=== PATIENT | male | born 1970 | race Caucasian/White ===

== ENCOUNTER 2016-09-26 18:00 | Observation (INO) | payer OTHER ==
[~2016-09-26] VITALS: Ht 177.8 cm; Wt 86.1 kg
--- NOTE | 2016-09-26 19:20 | ED ORDER SUMMARY ---
..... Patient: KERRY MANCUSO OrderSheet [facility] VisitID: [id number] [address] [place] [address] 46y, M Registration Date/Time: 09/26/2016 ORDER SHEET Weight: 86.1 kg (stated) Allergies: Remicade GENERAL ORDERS: UA-Culture if indicated Urgent (18:16 09/26/2016 [facility]) (Ack 18:19 TBergley) (18:33 LWhalen R.N.) Amylase Urgent (18:16 09/26/2016 [facility]) (Ack 18:19 TBergley) (18:33 LWhalen R.N.) Lipase Urgent (18:16 09/26/2016 [facility]) (Ack 18:19 TBergley) (18:33 LWhalen R.N.) PT with INR Urgent (18:16 09/26/2016 [facility]) (Ack 18:19 TBergley) (18:33 LWhalen R.N.) Cardiac Panel Stat (18:16 09/26/2016 [facility]) (Ack 18:19 TBergley) (18:33 LWhalen R.N.) Urine Drug Screen Urgent (18:16 09/26/2016 [facility]) (Ack 18:19 TBergley) (18:33 LWhalen R.N.) NPO (18:16 09/26/2016 [facility] ) (Ack 18:19 TBergley) (18:33 LWhalen R.N.) Abd Series 2V Abd/1V Chest (history of Crohn's ds) Urgent (18:22 09/26/2016 [facility] ) (Ack 18:23 TBergley) (18:33 LWhalen R.N.) Call (Place call to): (Dr Ghotra) (19:22 09/26/2016 [facility] DO) (Ack 19:22 [facility]) (19:24 [facility] We[facility]) Call (Place call to): (Dr Blanco) (19:25 09/26/2016 [facility]) (19:31 [facility] Weighmaster) MEDICATION ORDERS: IV FLUIDS: IV NS : initial bolus 1000 mL (1000 mL/hr), then 500 mL/hr for X2 (NOW) (18:16 09/26/2016 [facility]) (18:43 LWhalen R.N.) Zofran IV 4 mg (NOW) (18:16 09/26/2016 [facility]) (18:43 LWhalen R.N.) Dilaudid IV 0.5 mg (may repeat x 1 prn pain) (19:01 09/26/2016 [facility]) (19:21 DDavis R.N.) Solu-MEDROL IV 125 mg (NOW) (19:21 09/26/2016 [facility]) (Ack 19:22 DDavis R.N.) (19:29 DDavis R.N.) ORDER SHEET NOTES: [Electronically signed by Todd Anne R.N. (20:27 09/26/2016)] [Electronically signed by Duncan Cruz DO (21:39 09/26/2016)] [Electronically locked/signed by Todd Anne R.N. (20:27 09/26/2016)]
--- NOTE | 2016-09-26 19:20 | ED CLINICAL REPORT ---
Clinical Report - Physicians/Mid Levels [facility] [address] [place] [address] 09/26/2016 18:06 Patient: KERRY MANCUSO Time Seen: 18:16. Arrived- By private vehicle. Historian- patient. HISTORY OF PRESENT ILLNESS Chief Complaint: ABDOMINAL PAIN. At its maximum, severity described as severe. When seen in the E.D., severity described as moderate. Modifying factors- worsened by movement and food. Relieved by rest. This started today and is still present. It was gradual in onset and has been waxing/waning. It is described as "pain". No radiation. It is described as located in the right abdomen and right lower quadrant. The patient has had nausea. He has had moderate vomiting. The vomiting has occurred several times. No bilious emesis, blood-tinged emesis or frankly bloody emesis. No diarrhea. Similar symptoms previously: Occasionally. Recent medical care: Not recently seen/assessed. REVIEW OF SYSTEMS The patient has had constipation and back pain. No black stools, hematemesis, difficulty with urination, pain with urination or urinary frequency. No bloody stools, fever, headache, sore throat or chest pain. No difficulty breathing or cough. Last bowel movement: yesterday. All systems otherwise negative, except as recorded above. PAST HISTORY See nurses notes. Bowel obstruction secondary to Crohn's disease. Crohn's disease. Insomnia. Surgeries: Bowel surgery. Medications: Ambien Oral. OxyCODONE HCl Oral. Emtacorte. AzaTHIOprine Oral. Stelara Subcutaneous. Allergies: Remicade. SOCIAL HISTORY Never smoker. No alcohol use or drug use. ADDITIONAL NOTES The nursing notes have been reviewed. PHYSICAL EXAM Vital Signs: 09/26/2016 18:13 BP: 155/97. HR: 83. RR: 18. O2 saturation: 99%. Temp: 98.4 F. Appearance: Alert. Oriented X3. Patient in moderate distress. Eyes: Pupils equal, round and reactive to light. Eyes normal inspection. No scleral icterus or pale conjunctivae. ENT: Pharynx normal. No pharyngeal erythema or tonsillar exudate. The mucous membranes are not dry. Neck: Normal inspection. Neck supple. CVS: Normal heart rate and rhythm. Heart sounds normal. Pulses normal. Respiratory: No respiratory distress. Breath sounds normal. Abdomen: Tenderness in the right side of the abdomen, right lower quadrant and lower abdomen. No mass. No rebound tenderness or guarding. Back: Normal inspection. Skin: Skin warm and dry. Normal skin color. Normal skin turgor. Extremities: Extremities exhibit normal ROM. No calf tenderness. No lower extremity edema. Neuro: Oriented X 3. No motor deficit. LABS, X-RAYS, AND EKG Chest X-ray: No acute disease. Normal lung markings present. Normal heart size. Mediastinum normal. Great vessels normal. No infiltrate. Views: PA. Technique: good. The X-rays were interpreted contemporaneously by me. KUB: (dilated small bowel loops with AFL's c/w SBO). Views: two-view AP. Technique: good. The X-rays were interpreted contemporaneously by me. Laboratory Tests: UA-Culture if indicated: (SHANNON: 09/26/2016 18:17) ( [facility] Final results Test Result Flag Units (Reference) URINE COLOR YELLOW URINE APPEARANCE HAZY URINE GLUCOSE NEGATIVE (NEGATIVE) URINE BILIRUBIN NEGATIVE (NEGATIVE) URINE KETONE NEGATIVE (NEGATIVE) URINE SPECIFIC GRAVITY 1.015 (1.010-1.030) URINE PH 8.0 (5.0-8.0) URINE PROTEIN NEGATIVE (NEGATIVE) URINE UROBILINOGEN 0.2 EU/dL (0.2-1.0) URINE NITRITE NEGATIVE (NEGATIVE) URINE BLOOD NEGATIVE (NEGATIVE) URINE LEUK ESTERASE NEGATIVE (NEGATIVE) URINE RBC RARE rbc/hpf (0-1) URINE WBC NONE SEEN wbc/hpf (0-1) URINE EPITHELIAL CELLS NONE SEEN EPI/hpf (0-5) URINE BACTERIA NONE SEEN (NONE SEEN) URINE COMMENT CULT NOT INDICATED 1+ AMORPHOUS URATESURINE CULTURES ARE SET-UP BASED ON THE FOLLOWING CRITERIA:POSITIVE NITRITEPOSITIVE LEUKOCYTE ESTERASEGREATER THAN 10 WHITE BLOOD CELLSMODERATE (2+) OR GREATER BACTERIA CBC w Diff: (SHANNON: 09/26/2016 18:17) ( [facility] 09/26/2016 18:51) Final results Test Result Flag Units (Reference) WHITE BLOOD COUNT 10.4 K/uL (4.5-11.5) RED BLOOD COUNT 5.12 M/uL (4.50-5.90) HEMOGLOBIN 13.1 L gm/dL (13.5-17.5) HEMATOCRIT 41.2 % (41.0-53.0) MEAN CELL VOLUME 81 fL (80-100) MEAN CORPUSCULAR HGB 26 pg (26-34) MEAN CORPUSCULAR HGB CONC 32 g/dL (31-37) RED CELL DISTRIBUTION WIDTH 17.9 H % (11.6-14.8) PLATELET COUNT 299 K/uL (150-400) NEUTROPHIL % 85.5 H % (50-75) LYMPH % 9.2 L % (25-40) MONO % 4.9 % (3-14) EOSINOPHIL % 0.4 % (0-4) BASOPHIL % 0 % (0-2) PT with INR: (SHANNON: 09/26/2016 18:17) ( [facility] 09/26/2016 18:58) Final results Test Result Flag Units (Reference) INR 0.9 (0.8-1.2) Low Intensity Therapy: INR 1.5-2.0 PT range 18.5-23.1Mod.Intensity Therapy: INR 2.0-3.0 PT range 23.1-31.5High Intensity Therapy: INR 2.5-3.5 PT range 27.4-35.5High Intensity Therapy 2: INR 3.0-4.0 PT range 31.5-39.3 Urine Drug Screen: (SHANNON: 09/26/2016 18:17) ( [facility] 09/26/2016 19:27) Final results Test Result Flag Units (Reference) AMPHETAMINE/METHAMPHETAMINE NEGATIVE (NEGATIVE) BARBITURATE NEGATIVE (NEGATIVE) BENZODIAZEPINE NEGATIVE (NEGATIVE) CANNABINOID NEGATIVE (NEGATIVE) COCAINE NEGATIVE (NEGATIVE) ECSTASY NEGATIVE (NEGATIVE) METHADONE NEGATIVE (NEGATIVE) OPIATE NEGATIVE (NEGATIVE) The urine drug screen is a qualitative screening test fordrug overdose and abuse. All screen results should beconsidered as presumptive.Drugs screened for are as follows:BenzodiazepinesCocaineAmphetamines/MetamphetaminesTHC (Tetrahydrocannabinol)OpiatesBarbituratesEcstasyMethadonePositive results are unconfirmed. For confirmation, notifythe lab for the specimen to be sent to the reference lab.All confirmations must be performed by a differentmethodology.The ingestion of natural herbal and plant productscontaining Ephedra/Ephedra metabolites can produce in urineone or more substances capable of cross reacting withamphetamine/methamphetamine immunoassays. These testsprovide a preliminary result only. A more specificalternative chemical method must be used to obtain aconfirmed analytical result. CHEM 13 PANEL: (SHANNON: 09/26/2016 18:17) ( [facility] 09/26/2016 19:26) Final results Test Result Flag Units (Reference) GLUCOSE 101 mg/dL (70-110) BUN 10 mg/dL (7-18) CREATININE 0.8 mg/dL (0.6-1.3) Estimated GFR >60 mL/min Estimated GFR- >60 mL/min Note: Persistent reduction over 3 months in eGFR<60 mL/min/1.73 m2 defines CKD. Patients with eGFR values>=60 mL/min/1.73 m2 may also have CKD if evidence ofpersistent proteinuria. Additional information may be foundat www.[email or web address].org. SODIUM 143 mmol/L (136-145) POTASSIUM 4.1 mmol/L (3.5-5.1) CHLORIDE 103 mmol/L (98-107) CARBON DIOXIDE 33 H mmol/L (21-32) CALCIUM 9.5 mg/dL (8.5-10.1) TOTAL PROTEIN 8.2 g/dL (6.4-8.2) ALBUMIN 4.1 g/dL (3.3-5.0) BILIRUBIN, TOTAL 0.5 mg/dL (0.0-1.0) ALKALINE PHOSPHATASE 82 U/L (46-116) AST (SGOT) 36 U/L (15-37) ALT (SGPT) 65 U/L (12-78) MAGNESIUM 2.1 mg/dL (1.8-2.4) LIPASE 128 U/L (73-393) AMYLASE 56 U/L (25-115) CPK 88 U/L (24-260) TROPONIN I <0.05 L ng/mL (0.00-1.5) TROPONIN REFERENCE RANGE:<0.1 NEGATIVE0.1-1.5 INDETERMINANT>1.5 POSITIVE . Pulse Oximetry: 09/26/2016 18:13 O2 saturation: 99%. (FIO2 - room air). Interpretation: normal. PROGRESS AND PROCEDURES Course of Care: Normal Saline 1 liter IVPB given. Zofran 4 mg IVP given. Dilaudid 0.5 mg IVP given. Patient is stable. Physical exam findings are improved. Symptoms better. C/w SBO from Crohn's exacerbation. Discussed case with hospitalist, (Brandin call placed 19:25). Reviewed test results. Agreed upon treatment plan. Health care provider will see patient in ED. Discussed case with on-call health care provider, (Bella call placed 19:27 call returned 19:27 - requests his paper "bowel obstruction orders"). Reviewed test results. Agreed upon treatment plan. Health care provider will see patient in hospital. Patient/family counseled. Old medical records ordered. (from [facility]). Transition orders written (and "Small bowel obstruction" orders). Disposition: Observation in Acute Care. Condition: stable and guarded. CLINICAL IMPRESSION Early, partial small bowel obstruction associated with intestinal bands / adhesions. No volvulus. Crohn's disease in the small intestine with acute abdominal pain and obstruction. (Electronically signed by Duncan Cruz DO 09/26/2016 21:39)
--- NOTE | 2016-09-26 19:20 | ED NURSING NOTES ---
Clinical Report - Nurses Merged With [facility] [address] [place] [address] 09/26/2016 18:06 Patient: KERRY MANCUSO TRIAGE Triage time 18:Sep 26 2016. Acuity: LEVEL 3. Chief Complaint: ABDOMINAL PAIN, NAUSEA and VOMITING. REGINA COMA SCORE: Regina Coma Scale: 15- eyes open spontaneously (4); best verbal response- oriented x 4 (5); best motor response- obeys commands (6). --18:27 Mendoza Wynne R.N. 18:13 09/26/16. BP: 155/97. HR: 83. RR: 18. O2 saturation: 99%. Temp: 98.4 F. Pain level now 9/10. --18:27 Mendoza Wynne R.N. Weight: 86.1 kg stated. Height/Length: 70 inches Per Patient. BMI: 27.2. --18:27 Mendoza Wynne R.N. Medications Stelara Subcutaneous. --18:18 Mendoza Wynne R.N. AzaTHIOprine Oral. --18:23 Mendoza Wynne R.N. Emtacorte. --18:24 Mendoza Wynne R.N. OxyCODONE HCl Oral. --18:24 Mendoza Wynne R.N. Ambien Oral. --19:01 Mendoza Wynne R.N. Allergies Remicade. --18:24 Mendoza Wynne R.N. History Arrived by private vehicle. Historian: patient. Accompanied by family. This started last night. ( Normally goes bm every hour but states hasn't gone since 0100. Was told to go ER for any abnormal abdominal pain because he started stelera he just had the second dose last week and it's every 8 weeks.). He has had nausea, vomiting and abdominal pain. No diarrhea, constipation or fever. Last oral intake by patient was lunch. PAST MEDICAL HX: Immunizations: status is unknown. SOCIAL HX: Never smoker. No alcohol use or drug use. No recent travel. He has had contact with a sick family member. (Strep throat). SELF HARM ASSESSMENT: A self harm assessment was performed. The patient answered "no" to the question "Have you recently felt down, depressed, or hopeless?" and "Do you have thoughts of harming or killing yourself?". FALL RISK ASSESSMENT: Fall risk assessment completed. No fall risk identified. NUTRITIONAL RISK ASSESSMENT: The nutritional risk assessment revealed no deficiencies. FUNCTIONAL ASSESSMENT: Functional assessment: no impairments noted. LEARNING NEEDS ASSESSMENT: The learning needs assessment revealed no barriers. ABUSE ASSESSMENT: Abuse assessment: (yes) The patient was asked "Do you feel safe in your home?". SKIN INTEGRITY ASSESSMENT: Skin integrity risk assessment completed. No skin integrity risk identified. --18:27 Mendoza Wynne R.N. PROBLEMS: Crohn's Disease. --18:25 Mendoza Wynne R.N. ADDITIONAL SURGERIES: Bowel Surgery. --18:25 Mendoza Wynne R.N. Interventions ID and allergy band on patient. --18:27 Mendoza Wynne R.N. PHYSICAL ASSESSMENT Ambulatory to room. GENERAL / NEURO / PSYCH: Alert. Oriented X 4. Appears anxious. HEENT: Mucous membranes are pink. RESPIRATORY: Respirations not labored. Breath sounds within normal limits. CVS: Normal sinus rhythm noted. Capillary refill less than 2 seconds. GI / : The patient has had nausea. Emesis noted. Abdominal distention. Abdominal tenderness. Normal genitalia. SKIN: Skin is warm and dry. --18:27 Mendoza Wynne R.N. ( patient resting in bed, alert and oriented. family of patient at bedside.). GENERAL / NEURO / PSYCH: Alert. Oriented X 4. Appears in no acute distress. Does not appear anxious or in distress. HEENT: Mucous membranes are pink. RESPIRATORY: Respirations not labored. CVS: Capillary refill less than 2 seconds. GI / : Abdomen soft. SKIN: Skin is warm and dry. --19:23 Todd Anne R.N. ( conversant). --19:23 Todd Anne R.N. NURSING PROGRESS NOTES The initial plan of care for this patient includes an assessment with efforts to address patient positioning and appropriate ambient lighting; impairment of the gastrointestinal system. Pulse oximeter and NIBP monitor placed on patient. Patient gowned. Head of bed elevated 90 degrees. Reassurance given. Call light placed in reach. Side rails up x 1. Bed placed in lowest position. Brakes of bed on. --18:28 Mendoza Wynne R.N. 18:18 09/26/2016 Site #1 started via IV in the right antecubital space with an 20g angiocath, with aseptic technique and good blood return; one attempt. Blood drawn: rainbow set. Labeled in the presence of the patient and sent to the lab. Saline lock flushed with 10 mL saline. --18:43 Mendoza Wynne R.N. 18:43 09/26/2016 Started bag #1 1000 mL IV Fluids IV NS (Saline); at 1000 mL/hr over 1 hour(s) via site #1 via dial-a-flow. Allergies verified and confirmed 5 rights. IV patency established. IV site checked: no pain, redness, or swelling. IV flushed thoroughly pre- and post-medication administration. --18:43 Mendoza Wynne R.N. 18:43 09/26/2016 Zofran (Ondansetron HCl) IVP 4 mg given over 2 minute(s) via site #1. Allergies verified and confirmed 5 rights. IV patency established. IV site checked: no pain, redness, or swelling. IV flushed thoroughly pre- and post-medication administration. --18:43 Mendoza Wynne R.N. ( Report given to Rito GAYTAN.). --19:02 Mendoza Wynne R.N. ( Report received from Mendoza Abraham RN). --19:06 Todd Anne R.N. 19:17 09/26/2016 Dilaudid (HYDROmorphone HCl PF) IVP 0.5 mg given over 1 minute(s) via site #1. Allergies verified, confirmed 5 rights and sedative warning given to the patient. IV patency established. IV site checked: no pain, redness, or swelling. IV flushed thoroughly pre- and post-medication administration. IVP given by RN. --19:21 Todd Anne R.N. 19:26 09/26/2016 SOLU-MEDROL (MethylPREDNISolone Sodium Succ) IVP 125 mg given over 2 minute(s) via site #1. Allergies verified and confirmed 5 rights. IV patency established. IV site checked: no pain, redness, or swelling. IV flushed thoroughly pre- and post-medication administration. IVP given by RN. --19:29 Todd Anne R.N. ( I attempted to call report for floor nurse. that nurse is not availible and states that she will call me back for report in 15 minutes.). --20:15 Todd Anne R.N. ( Report given to Bhavana RN: floor nurse.). --20:21 Todd Anne R.N. 20:17 09/26/2016 IV Fluids IV NS Continued: upon transfer at the rate of 0 mL/hr. 0 mL remaining bag #1. IV patency established. IV site checked: no pain, redness, or swelling. IV flushed thoroughly. --20:27 Todd Anne R.N. DISPOSITION / DISCHARGE Departure time: 20:26. Condition at departure: stable. Admitted. Transferred (20:26). Transported via stretcher by transport team. Report was given to a nurse via a phone call. Report included patient's care, treatment, medications, reviewed medication reconcilliation, and condition (including any recent changes or anticipated changes). All questions were answered. Report was acknowledged. (Bhavana). Patient's personal items include: shirt, pants and cell phone; items were transported with the patient. --20:26 Todd Anne R.N. 20:21 09/26/16. BP: 154/88. HR: 89. RR: 18. O2 saturation: 97% on room air. --20:26 Todd Anne R.N. Locked/Released at 09/26/2016 20:27 by Todd Anne R.N.
--- NOTE | 2016-09-26 19:20 | ED ORDER SUMMARY ---
..... Patient: KERRY MANCUSO OrderSheet Located Within [facility] VisitID: [id number] [address] [place] [address] 46y, M Registration Date/Time: 09/26/2016 ORDER SHEET Weight: 86.1 kg (stated) Allergies: Remicade GENERAL ORDERS: UA-Culture if indicated Urgent (18:16 09/26/2016 [facility]) (Ack 18:19 TBergley) (18:33 LWhalen R.N.) Amylase Urgent (18:16 09/26/2016 [facility]) (Ack 18:19 TBergley) (18:33 LWhalen R.N.) Lipase Urgent (18:16 09/26/2016 [facility]) (Ack 18:19 TBergley) (18:33 LWhalen R.N.) PT with INR Urgent (18:16 09/26/2016 [facility]) (Ack 18:19 TBergley) (18:33 LWhalen R.N.) Cardiac Panel Stat (18:16 09/26/2016 [facility]) (Ack 18:19 TBergley) (18:33 LWhalen R.N.) Urine Drug Screen Urgent (18:16 09/26/2016 [facility]) (Ack 18:19 TBergley) (18:33 LWhalen R.N.) NPO (18:16 09/26/2016 [facility] ) (Ack 18:19 TBergley) (18:33 LWhalen R.N.) Abd Series 2V Abd/1V Chest (history of Crohn's ds) Urgent (18:22 09/26/2016 [facility] ) (Ack 18:23 TBergley) (18:33 LWhalen R.N.) Call (Place call to): (Dr Ghotra) (19:22 09/26/2016 [facility] DO) (Ack 19:22 [facility]) (19:24 [facility] Delivery Consultant) Call (Place call to): (Dr Blanco) (19:25 09/26/2016 [facility]) (19:31 [facility] Service Delivery Consultant) MEDICATION ORDERS: IV FLUIDS: IV NS : initial bolus 1000 mL (1000 mL/hr), then 500 mL/hr for X2 (NOW) (18:16 09/26/2016 [facility]) (18:43 LWhalen R.N.) Zofran IV 4 mg (NOW) (18:16 09/26/2016 [facility]) (18:43 LWhalen R.N.) Dilaudid IV 0.5 mg (may repeat x 1 prn pain) (19:01 09/26/2016 [facility]) (19:21 DDavis R.N.) Solu-MEDROL IV 125 mg (NOW) (19:21 09/26/2016 [facility]) (Ack 19:22 DDavis R.N.) (19:29 DDavis R.N.) ORDER SHEET NOTES: [Electronically signed by Todd Anne R.N. (20:27 09/26/2016)] [Electronically signed by Duncan Cruz DO (21:39 09/26/2016)] [Electronically locked/signed by Todd Anne R.N. (20:27 09/26/2016)]
--- NOTE | 2016-09-26 19:54 | DIAGNOSTIC IMAGING REPORT ---
PROCEDURE: XR ABD SERIES 2V ABD/1V CHEST INDICATION: ABDOMINAL PAIN TECHNIQUE: AP supine and upright views of the abdomen with single view of the chest. COMPARISON: None. FINDINGS: CHEST: Lungs are clear. Normal cardiovascular structures. Bony thorax is unremarkable. ABDOMEN: Nonspecific small air-fluid levels centrally and right lower quadrant with gas in the large bowel. Mild residual stool. No soft-tissue masses or unusual calcifications. No evidence of free air. Central mesh present. Osseous structures are unremarkable. IMPRESSION: 1. Nonspecific small air-fluid levels present. This may represent enteritis. Early partial small bowel obstruction is less likely.
[2016-09-26 20:54] VITALS: BP 148/92
--- NOTE | 2016-09-26 21:00 | Progress Note ---
Subjective General Admission History and Physical Examination Patient Name: Mauricio Barone Admission Date: Sep 26 2016 Primary Care Provider: [facility] Attending Physician: Gustavo Barajas M.D. Admitting Physician: Cornelius Ghotra M.D. Code Status: FULL CODE Room: 202 SUBJECTIVE Historian: Patient Reliability: good Chief Complaint: Acute Abdominal pain Nausea History of Present Illness: The patient is a 46-year-old white male with a significant past make a history of Crohn's disease that has been refractory to therapy, recent infusion x2 of the Stelara. who presented to [facility] emergency room on the day of admission secondary to complaints of shortness of breath. Patient states he is otherwise healthy up until today. [facility] ER evaluation was consistent with exacerbation of Crohn's disease with abdominal pain and rule out for SBO.. Secondary to the above, the patient was admitted for further evaluation and treatment by Cornelius Ghotra M.D. The patient states the history of present was began 2 days prior to admission when he had increasing frequency of right lower abdominal pain. Patient states that he received infusion of stelara. He reports that he had his first injection of similar 2 weeks ago but did not have symptoms related to infusion. This time patient was concerned because of abdominal pain. There is no case reports of similar and worsening abdominal pain and perforations of the bowel. Patient entered the clinic for observation and further recommendations. Patient did not report the findings to his assurance assistant. In the ED, patient was given Solu-Medrol, fluid hydration, PAST MEDICAL HISTORY Illnesses: 1. Crohn's disease 2. Depression, 3. Recurrent respiratory infections Allergies: 1. Remicade Medications: 1. Remicade infusions 2. Azathioprine Surgery: 1. Bowel resection Injuries: 1. None reporedt Hospitalizations: 1. Crohn's flare. [place] multiple occasions. FAMILY HISTORY Parents: 1. Father, alive and well 2. Mother alive and well Children: 1. One son SOCIAL HISTORY 1. Marital Status: 2. Druze: Unknown 3. Education: High school; College 4. Employment History: electrician helper 5. Occupational health exposures: None known HABITS 1. Tobacco: None 2. Drugs: None 3. Alcohol: None 4. Caffeine: None HEALTH SUPERVISION Item/Test 1. No recent health maintenance IMMUNIZATIONS: 1. Pneumococcal: Date unknown 2. Influenza: None 3. Tetanus: Unknown ADVANCED DIRECTIVES: 1. Living well: None 2. POLST: No 3. Code Status: FULL CODE 4. Durable Power Environmental Health Safety Manager Health care: 5. Donor card: No REVIEW OF SYSTEMS Remarkable for those things stated in the history of present illness and past medical history. Seventeen point review of system completed with the following notable findings: Constitutional Weakness. Denies: Chills, Sweats. Eyes Denies: Vision Change. ENT Denies: Nose Pain, Nasal Discharge, Nasal Congestion. Respiratory Denies: SOB w/exertion, Wheezing. Cardiovascular Denies: Orthopnea, PND. Gastrointestinal Denies: Abdominal Pain, Diarrhea. Musculoskeletal Denies: Arm Pain. Skin Denies: Lesions. Physical Exam Vital Signs / I&Os Vital Signs Date Time Temp Pulse Resp B/P Pulse O2 O2 Flow FiO2 Ox Delivery Rate 09/26 2053 98.4 81 20 148/92 95 Room Air 09/27 2043 Room Air General Appearance Oriented X3, Cooperative HEENT PERRLA, EOMI, Moist mucous membranes Lungs Clear to auscultation, Normal air movement Neck Supple, No JVD Cardiovascular Regular rate and rhythm, Normal S1 and S2 Abdomen protuberant, tenderness right lower quadrant No rebound. Extremities No edema, Normal pulses Skin No Breakdown, No Significant Lesions Neurological Normal gait, Normal speech Psych/Mental Status Mood normal LAB Results Laboratory Tests 09/26 09/26 1816 181 Chemistry Plasma Sodium (136 - 145 mmol/L) 143 Plasma Potassium (3.5 - 5.1 mmol/L) 4.1 Plasma Chloride (98 - 107 mmol/L) 103 CO2 (Enzymatic) (21 - 32 mmol/L) 33 BUN (7 - 18 mg/dL) 10 Creatinine (0.6 - 1.3 mg/dL) 0.8 Est GFR ( Amer) (mL/min) >60 Est GFR (Non-Af Amer) (mL/min) >60 Glucose (70 - 110 mg/dL) 101 Plasma Calcium (8.5 - 10.1 mg/dL) 9.5 Plasma Magnesium (1.8 - 2.4 mg/dL) 2.1 Total Bilirubin (0.0 - 1.0 mg/dL) 0.5 AST (15 - 37 U/L) 36 ALT (12 - 78 U/L) 65 Alkaline Phosphatase (46 - 116 U/L) 82 Creatine Kinase (24 - 260 U/L) 88 Troponin (0.00 - 1.5 ng/mL) <0.05 Total Protein (6.4 - 8.2 g/dL) 8.2 Albumin (3.3 - 5.0 g/dL) 4.1 Amylase (25 - 115 U/L) Cancelled 56 Lipase (73 - 393 U/L) Cancelled 128 Coagulation INR (0.8 - 1.2) 0.9 Hematology WBC (4.5 - 11.5 K/uL) 10.4 RBC (4.50 - 5.90 M/uL) 5.12 Hgb (13.5 - 17.5 gm/dL) 13.1 Hct (41.0 - 53.0 %) 41.2 MCV (80 - 100 fL) 81 MCH (26 - 34 pg) 26 RDW (11.6 - 14.8 %) 17.9 Neut % (Auto) (50 - 75 %) 85.5 Lymph % (Auto) (25 - 40 %) 9.2 [place] % (Auto) (3 - 14 %) 4.9 Eos % (Auto) (0 - 4 %) 0.4 Baso % (Auto) (0 - 2 %) 0 Plt Count, EDTA (150 - 400 K/uL) 299 PUBS MCHC (31 - 37 g/dL) 32 Toxicology Urine Opiates Screen (NEGATIVE) NEGATIVE Urine Methadone Screen (NEGATIVE) NEGATIVE Ur Barbiturates Screen (NEGATIVE) NEGATIVE U Amphetamin/Meth Scrn (NEGATIVE) NEGATIVE MDMA (Ecstasy) Screen (NEGATIVE) NEGATIVE U Benzodiazepines Scrn (NEGATIVE) NEGATIVE Urine Cocaine Screen (NEGATIVE) NEGATIVE U Cannabinoids Screen (NEGATIVE) NEGATIVE Urines Urine Color YELLOW Urine Appearance HAZY Urine pH (5.0 - 8.0) 8.0 Ur Specific [place] (1.010 - 1.030) 1.015 Urine Protein (NEGATIVE) NEGATIVE Urine Ketones (NEGATIVE) NEGATIVE Urine Blood (NEGATIVE) NEGATIVE Urine Nitrite (NEGATIVE) NEGATIVE Urine Bilirubin (NEGATIVE) NEGATIVE Urine Urobilinogen (0.2 - 1.0 EU/dL) 0.2 Ur Leukocyte Esterase (NEGATIVE) NEGATIVE Urine RBC (0 - 1 rbc/hpf) RARE Urine WBC (0 - 1 wbc/hpf) NONE SEEN Ur Epithelial Cells (0 - 5 EPI/hpf) NONE SEEN Urine Bacteria (NONE SEEN) NONE SEEN Urine Glucose (NEGATIVE) NEGATIVE Urine Comment CULT NOT INDICATED Imaging X-ray abdominal series 09/26/16 1. Nonspecific small air-fluid levels present. This may represent enteritis. Early partial small bowel obstruction is less likely. Assessment and Plan Problem List 1. Exacerbation of Crohn's disease Plan This appears to be an exacerbation of Crohn's disorder, disease. There is correlation between recent infusion of Stelara and the correlation of the right lower abdominal pain. She'll be admitted under observation. Surgery to review. Attempt to maintain pain control. Starting meperidine; favored by general surgery. Started on LR Hirschhorn 5 cc an hour * Early September by mouth, clear liquid diet Monitor weight loss. BMI. 2. Small bowel obstruction Plan Small bowel obstruction is not confirmed. We'll plan to use caution with advancement diet. Follow-up in and review findings with General surgery 3. Abdominal pain Plan Abdominal pain is moderate in the right lower quadrant. Pain earlier today with severe Continue maintain appropriate fluid balance Pain control measures. Current status: Fair, unstable Anticipated discharge date: Anticipated discharge in 1-2 days Anticipated discharge placement: Home Patient care time: Time spent in chart review, patient interview, physical exam, CPOE, and care documentation: 70 minutes Visit to patient today: 2 Complexity of care: High E&M Codes Rounding: Obsv-Comp/High/[id number]
--- NOTE | 2016-09-26 21:00 | Progress Note ---
Subjective General Admission History and Physical Examination Patient Name: Mauricio Barone Admission Date: Sep 26 2016 Primary Care Provider: [facility], [place], operated by [facility] Attending Physician: Gustavo Barajas M.D. Admitting Physician: Cornelius Ghotra M.D. Code Status: FULL CODE Room: 202 SUBJECTIVE Historian: Patient Reliability: good Chief Complaint: Acute Abdominal pain Nausea History of Present Illness: The patient is a 46-year-old white male with a significant past make a history of Crohn's disease that has been refractory to therapy, recent infusion x2 of the Stelara. who presented to [facility] emergency room on the day of admission secondary to complaints of shortness of breath. Patient states he is otherwise healthy up until today. [facility] ER evaluation was consistent with exacerbation of Crohn's disease with abdominal pain and rule out for SBO.. Secondary to the above, the patient was admitted for further evaluation and treatment by Cornelius Ghotra M.D. The patient states the history of present was began 2 days prior to admission when he had increasing frequency of right lower abdominal pain. Patient states that he received infusion of stelara. He reports that he had his first injection of similar 2 weeks ago but did not have symptoms related to infusion. This time patient was concerned because of abdominal pain. There is no case reports of similar and worsening abdominal pain and perforations of the bowel. Patient entered the clinic for observation and further recommendations. Patient did not report the findings to his communication manager. In the ED, patient was given Solu-Medrol, fluid hydration, PAST MEDICAL HISTORY Illnesses: 1. Crohn's disease 2. Depression, 3. Recurrent respiratory infections Allergies: 1. Remicade Medications: 1. Remicade infusions 2. Azathioprine Surgery: 1. Bowel resection Injuries: 1. None reporedt Hospitalizations: 1. Crohn's flare. [place] multiple occasions. FAMILY HISTORY Parents: 1. Father, alive and well 2. Mother alive and well Children: 1. One son SOCIAL HISTORY 1. Marital Status: 2. Mandaen: Unknown 3. Education: High school; College 4. Employment History: commercial journeyman electrician 5. Occupational health exposures: None known HABITS 1. Tobacco: None 2. Drugs: None 3. Alcohol: None 4. Caffeine: None HEALTH SUPERVISION Item/Test 1. No recent health maintenance IMMUNIZATIONS: 1. Pneumococcal: Date unknown 2. Influenza: None 3. Tetanus: Unknown ADVANCED DIRECTIVES: 1. Living well: None 2. POLST: No 3. Code Status: FULL CODE 4. Durable Power Towel Sorter Health care: 5. Donor card: No REVIEW OF SYSTEMS Remarkable for those things stated in the history of present illness and past medical history. Seventeen point review of system completed with the following notable findings: Constitutional Weakness. Denies: Chills, Sweats. Eyes Denies: Vision Change. ENT Denies: Nose Pain, Nasal Discharge, Nasal Congestion. Respiratory Denies: SOB w/exertion, Wheezing. Cardiovascular Denies: Orthopnea, PND. Gastrointestinal Denies: Abdominal Pain, Diarrhea. Musculoskeletal Denies: Arm Pain. Skin Denies: Lesions. Physical Exam Vital Signs / I&Os Vital Signs Date Time Temp Pulse Resp B/P Pulse O2 O2 Flow FiO2 Ox Delivery Rate 09/26 2053 98.4 81 20 148/92 95 Room Air 09/27 2043 Room Air General Appearance Oriented X3, Cooperative HEENT PERRLA, EOMI, Moist mucous membranes Lungs Clear to auscultation, Normal air movement Neck Supple, No JVD Cardiovascular Regular rate and rhythm, Normal S1 and S2 Abdomen protuberant, tenderness right lower quadrant No rebound. Extremities No edema, Normal pulses Skin No Breakdown, No Significant Lesions Neurological Normal gait, Normal speech Psych/Mental Status Mood normal LAB Results Laboratory Tests 09/26 09/26 1816 181 Chemistry Plasma Sodium (136 - 145 mmol/L) 143 Plasma Potassium (3.5 - 5.1 mmol/L) 4.1 Plasma Chloride (98 - 107 mmol/L) 103 CO2 (Enzymatic) (21 - 32 mmol/L) 33 BUN (7 - 18 mg/dL) 10 Creatinine (0.6 - 1.3 mg/dL) 0.8 Est GFR ( Amer) (mL/min) >60 Est GFR (Non-Af Amer) (mL/min) >60 Glucose (70 - 110 mg/dL) 101 Plasma Calcium (8.5 - 10.1 mg/dL) 9.5 Plasma Magnesium (1.8 - 2.4 mg/dL) 2.1 Total Bilirubin (0.0 - 1.0 mg/dL) 0.5 AST (15 - 37 U/L) 36 ALT (12 - 78 U/L) 65 Alkaline Phosphatase (46 - 116 U/L) 82 Creatine Kinase (24 - 260 U/L) 88 Troponin (0.00 - 1.5 ng/mL) <0.05 Total Protein (6.4 - 8.2 g/dL) 8.2 Albumin (3.3 - 5.0 g/dL) 4.1 Amylase (25 - 115 U/L) Cancelled 56 Lipase (73 - 393 U/L) Cancelled 128 Coagulation INR (0.8 - 1.2) 0.9 Hematology WBC (4.5 - 11.5 K/uL) 10.4 RBC (4.50 - 5.90 M/uL) 5.12 Hgb (13.5 - 17.5 gm/dL) 13.1 Hct (41.0 - 53.0 %) 41.2 MCV (80 - 100 fL) 81 MCH (26 - 34 pg) 26 RDW (11.6 - 14.8 %) 17.9 Neut % (Auto) (50 - 75 %) 85.5 Lymph % (Auto) (25 - 40 %) 9.2 [place] % (Auto) (3 - 14 %) 4.9 Eos % (Auto) (0 - 4 %) 0.4 Baso % (Auto) (0 - 2 %) 0 Plt Count, EDTA (150 - 400 K/uL) 299 PUBS MCHC (31 - 37 g/dL) 32 Toxicology Urine Opiates Screen (NEGATIVE) NEGATIVE Urine Methadone Screen (NEGATIVE) NEGATIVE Ur Barbiturates Screen (NEGATIVE) NEGATIVE U Amphetamin/Meth Scrn (NEGATIVE) NEGATIVE MDMA (Ecstasy) Screen (NEGATIVE) NEGATIVE U Benzodiazepines Scrn (NEGATIVE) NEGATIVE Urine Cocaine Screen (NEGATIVE) NEGATIVE U Cannabinoids Screen (NEGATIVE) NEGATIVE Urines Urine Color YELLOW Urine Appearance HAZY Urine pH (5.0 - 8.0) 8.0 Ur Specific [place] (1.010 - 1.030) 1.015 Urine Protein (NEGATIVE) NEGATIVE Urine Ketones (NEGATIVE) NEGATIVE Urine Blood (NEGATIVE) NEGATIVE Urine Nitrite (NEGATIVE) NEGATIVE Urine Bilirubin (NEGATIVE) NEGATIVE Urine Urobilinogen (0.2 - 1.0 EU/dL) 0.2 Ur Leukocyte Esterase (NEGATIVE) NEGATIVE Urine RBC (0 - 1 rbc/hpf) RARE Urine WBC (0 - 1 wbc/hpf) NONE SEEN Ur Epithelial Cells (0 - 5 EPI/hpf) NONE SEEN Urine Bacteria (NONE SEEN) NONE SEEN Urine Glucose (NEGATIVE) NEGATIVE Urine Comment CULT NOT INDICATED Imaging X-ray abdominal series 09/26/16 1. Nonspecific small air-fluid levels present. This may represent enteritis. Early partial small bowel obstruction is less likely. Assessment and Plan Problem List 1. Exacerbation of Crohn's disease Plan This appears to be an exacerbation of Crohn's disorder, disease. There is correlation between recent infusion of Stelara and the correlation of the right lower abdominal pain. She'll be admitted under observation. Surgery to review. Attempt to maintain pain control. Starting meperidine; favored by general surgery. Started on LR Hirschhorn 5 cc an hour * Early September by mouth, clear liquid diet Monitor weight loss. BMI. 2. Small bowel obstruction Plan Small bowel obstruction is not confirmed. We'll plan to use caution with advancement diet. Follow-up in and review findings with General surgery 3. Abdominal pain Plan Abdominal pain is moderate in the right lower quadrant. Pain earlier today with severe Continue maintain appropriate fluid balance Pain control measures. Current status: Fair, unstable Anticipated discharge date: Anticipated discharge in 1-2 days Anticipated discharge placement: Home Patient care time: Time spent in chart review, patient interview, physical exam, CPOE, and care documentation: 70 minutes Visit to patient today: 2 Complexity of care: High E&M Codes Rounding: Obsv-Comp/High/[id number]
--- NOTE | 2016-09-26 21:40 | ED MAR SUMMARY ---
..... Medication Administration Record [facility] [address] [place] [address] Patient: KERRY MANCUSO Visit ID: [id number] 46y, M Weight: 86.1 kg Height/Length: 70 in BMI: 27.2 ALLERGIES: Remicade Start 18:09/26/2016 Mendoza Wynne R.N., Continued Upon Transfer 20:09/26/2016 Todd Anne R.N. Medication Administered: IV NS (SALINE), Dose: IV Fluids over 1 hour(s), Rate: 1000 mL/hr, Dispensed: 1000 mL bag, Site: #1 right AC. Medication Ordered: IV NS : initial bolus 1000 mL (1000 mL/hr), then 500 mL/hr for X2 (NOW). Given 18:09/26/2016 Mendoza Wynne R.N. Medication Administered: ZOFRAN [IVP] (ONDANSETRON HCL), Dose: 4 mg IVP over 2 minute(s), Site: #1 right AC. Medication Ordered: Zofran IV 4 mg (NOW). Given :09/26/2016 Todd Anne R.N. Medication Administered: DILAUDID [IVP] (HYDROMORPHONE HCL PF), Dose: 0.5 mg IVP over 1 minute(s), Site: #1 right AC. Medication Ordered: Dilaudid IV 0.5 mg (may repeat x 1 prn pain). Given :09/26/2016 Todd Anne R.N. Medication Administered: SOLU-MEDROL [IVP] (METHYLPREDNISOLONE SODIUM SUCC), Dose: 125 mg IVP over 2 minute(s), Site: #1 right AC. Medication Ordered: Solu-MEDROL IV 125 mg (NOW).
--- NOTE | 2016-09-26 21:40 | ED MED RECONCILIATION SUMMARY ---
Patient: KERRY MANCUSO Medication Reconciliation Report [facility] VisitID: [id number] [address] [place] [address] 46y, M Registration Date/Time: 09/26/2016 Weight: 86.1 kg Height/Length: 70 in. BMI: 27.2 ALLERGIES: Remicade The patient's Home Medications are listed below: THE FOLLOWING MEDICATIONS NEED TO BE RECONCILED: Ambien Oral AzaTHIOprine Oral Emtacorte OxyCODONE HCl Oral Stelara Subcutaneous The source(s) of the original Home Medication information: Not obtained. The following Medications were given to the patient in the Emergency Department: IV NS IV Fluids bolus 0, then 1000 mL/hr, administered: 09/26/2016 6:43:00 PM Zofran [IVP] IVP 4 mg, administered: 09/26/2016 6:43:00 PM Dilaudid [IVP] IVP 0.5 mg, administered: 09/26/2016 7:17:00 PM SOLU-MEDROL [IVP] IVP 125 mg, administered: 09/26/2016 7:26:00 PM The following Medications were prescribed to the patient: None.
--- NOTE | 2016-09-26 21:40 | ED DISCHARGE INSTRUCTIONS ---
Patient: KERRY MANCUSO General Instructions [facility] VisitID: [id number] [address] [place] [place] [address] 46y, M Registration Date/Time: 09/26/2016 Early, partial small bowel obstruction associated with intestinal bands / adhesions. No volvulus. Crohn's disease in the small intestine with acute abdominal pain and obstruction. (Electronically signed by Duncan Cruz DO 09/26/2016 21:39)
--- NOTE | 2016-09-26 21:40 | ED DISCHARGE INSTRUCTIONS ---
Patient: KERRY MANCUSO General Instructions [facility] VisitID: [id number] [address] [place] [address] 46y, M Registration Date/Time: 09/26/2016 Early, partial small bowel obstruction associated with intestinal bands / adhesions. No volvulus. Crohn's disease in the small intestine with acute abdominal pain and obstruction. (Electronically signed by Duncan Cruz DO 09/26/2016 21:39)
--- NOTE | 2016-09-26 21:40 | ED MED RECONCILIATION SUMMARY ---
Patient: KERRY MANCUSO Medication Reconciliation Report [facility] VisitID: [id number] [address] [place] [address] 46y, M Registration Date/Time: 09/26/2016 Weight: 86.1 kg Height/Length: 70 in. BMI: 27.2 ALLERGIES: Remicade The patient's Home Medications are listed below: THE FOLLOWING MEDICATIONS NEED TO BE RECONCILED: Ambien Oral AzaTHIOprine Oral Emtacorte OxyCODONE HCl Oral Stelara Subcutaneous The source(s) of the original Home Medication information: Not obtained. The following Medications were given to the patient in the Emergency Department: IV NS IV Fluids bolus 0, then 1000 mL/hr, administered: 09/26/2016 6:43:00 PM Zofran [IVP] IVP 4 mg, administered: 09/26/2016 6:43:00 PM Dilaudid [IVP] IVP 0.5 mg, administered: 09/26/2016 7:17:00 PM SOLU-MEDROL [IVP] IVP 125 mg, administered: 09/26/2016 7:26:00 PM The following Medications were prescribed to the patient: None.
--- NOTE | 2016-09-26 21:40 | ED MAR SUMMARY ---
..... Medication Administration Record [facility] [address] [place] [address] Patient: KERRY MANCUSO Visit ID: [id number] 46y, M Weight: 86.1 kg Height/Length: 70 in BMI: 27.2 ALLERGIES: Remicade Start 18:09/26/2016 Mendoza Wynne R.N., Continued Upon Transfer 20:09/26/2016 Todd Anne R.N. Medication Administered: IV NS (SALINE), Dose: IV Fluids over 1 hour(s), Rate: 1000 mL/hr, Dispensed: 1000 mL bag, Site: #1 right AC. Medication Ordered: IV NS : initial bolus 1000 mL (1000 mL/hr), then 500 mL/hr for X2 (NOW). Given 18:09/26/2016 Mendoza Wynne R.N. Medication Administered: ZOFRAN [IVP] (ONDANSETRON HCL), Dose: 4 mg IVP over 2 minute(s), Site: #1 right AC. Medication Ordered: Zofran IV 4 mg (NOW). Given :09/26/2016 Todd Anne R.N. Medication Administered: DILAUDID [IVP] (HYDROMORPHONE HCL PF), Dose: 0.5 mg IVP over 1 minute(s), Site: #1 right AC. Medication Ordered: Dilaudid IV 0.5 mg (may repeat x 1 prn pain). Given :09/26/2016 Todd Anne R.N. Medication Administered: SOLU-MEDROL [IVP] (METHYLPREDNISOLONE SODIUM SUCC), Dose: 125 mg IVP over 2 minute(s), Site: #1 right AC. Medication Ordered: Solu-MEDROL IV 125 mg (NOW).
[2016-09-26 22:39] VITALS: BP 154/97
[2016-09-27] VITALS (7 sets, daily range): BP systolic 117–144; BP diastolic 76–92
--- NOTE | 2016-09-27 07:15 | Progress Note ---
Subjective General Note Date: September 27, 2016 Admission Date: September 26, 2016 Hospital Day: 2 PCP: Burt davis Status: Observation, ACU Advanced Directive: FULL CODE Room: 204-A Brief History: The patient is a 46-year-old white male with a significant past make a history of Crohn's disease that has been refractory to therapy, recent infusion x2 of the Stelara. who presented to [facility] emergency room on the day of admission secondary to complaints of shortness of breath. Patient states he is otherwise healthy up until today. [facility] ER evaluation was consistent with exacerbation of Crohn's disease with abdominal pain and rule out for SBO.. Secondary to the above, the patient was admitted for further evaluation and treatment by Cornelius Ghotra M.D. For other history present illness, past medical history, family history, social history, review of systems, and admission physical examination please see the patient's history and physical examination and ER visit note in the patient's medical record. Subjective: The patient states his status is improved. Persistent pain but better. Positive BM today. No vomiting. Patient requests: None Medications and Allergies Medications Current Medications Sig/Cherelle Start time Last Medication Dose Route Stop Time Status Admin Metoprolol Tartrate 5 MG ONCE PRN 09/27 0015 AC 09/27 IV 0152 Metoclopramide HCl 10 MG Q6HR 09/27 0000 AC 09/27 IV 1159 Hydromorphone HCl 1 MG Q2H PRN 09/26 2315 AC 09/27 IV 0314 Hydromorphone HCl 2 MG Q2H PRN 09/26 2315 AC 09/27 IV 1200 Methylprednisolone 80 MG Q8HR 09/26 2200 AC 09/27 Sodium Succinate IV 1349 Famotidine/Sodium 50 ML Q12HR 09/26 2100 AC 09/27 Chloride IV 0835 Acetaminophen 650 MG Q6H PRN 09/26 204 AC PO Docusate Sodium 250 MG BID PRN 09/26 2044 AC PO Lactated Ringer's 1,000 ML ASDIRECTED 09/26 2044 AC 09/27 IV 0836 Zolpidem Tartrate 5 MG QHS PRN 09/26 204 AC 09/26 PO 2237 Ketorolac 60 MG .GIVE IN ED X 1 09/26 2014 AC Tromethamine IM Meperidine HCl 12.5 MG Q1H PRN 09/26 2014 AC 09/26 IV 2130 Ondansetron HCl 4 MG Q6H PRN 09/26 2014 AC 09/26 IV 2136 Sodium Chloride 1,000 ML ASDIRECTED 09/27 1999 IV Allergies Coded Allergies: Infliximab (From Remicade) (09/26/16) Lactose Intolerance (GI) (09/26/16) Physical Exam Vital Signs / I&Os Vital Signs Date Time Temp Pulse Resp B/P Pulse O2 O2 Flow FiO2 Ox Delivery Rate 09/27 0314 98.1 80 18 140/92 92 Room Air 09/27 0150 137/80 09/26 2239 98.1 98 20 154/97 97 Room Air 09/26 2053 98.4 81 20 148/92 95 Room Air 09/26 204 Room Air I&O 09/27 0000 09/26 1600 09/26 0800 Intake Total 0 Output Total Balance 0 General Appearance Alert, Oriented X3, Cooperative, No acute distress Lungs Clear to auscultation Cardiovascular Regular rate and rhythm, Normal S1 and S2 Abdomen Normal bowel sounds, Soft, mild tenderness right lower quadrant Extremities No cyanosis, No clubbing, No edema Neurological Cranial nerves intact, No lateralizing signs Psych/Mental Status Mental status normal, Mood normal LAB Results Laboratory Tests 09/27 09/26 09/26 0520 1817 1816 Chemistry Plasma Sodium (136 - 145 mmol/L) Pending 143 Plasma Potassium (3.5 - 5.1 mmol/L) Pending 4.1 Plasma Chloride (98 - 107 mmol/L) Pending 103 CO2 (Enzymatic) (21 - 32 mmol/L) Pending 33 BUN (7 - 18 mg/dL) Pending 10 Creatinine (0.6 - 1.3 mg/dL) Pending 0.8 Est GFR ( Amer) (mL/min) Pending >60 Est GFR (Non-Af Amer) (mL/min) Pending >60 Glucose (70 - 110 mg/dL) Pending 101 Plasma Calcium (8.5 - 10.1 mg/dL) Pending 9.5 Plasma Magnesium (1.8 - 2.4 mg/dL) 2.0 2.1 Total Bilirubin (0.0 - 1.0 mg/dL) 0.5 AST (15 - 37 U/L) 36 ALT (12 - 78 U/L) 65 Alkaline Phosphatase (46 - 116 U/L) 82 Creatine Kinase (24 - 260 U/L) 88 Troponin (0.00 - 1.5 ng/mL) <0.05 Total Protein (6.4 - 8.2 g/dL) 8.2 Albumin (3.3 - 5.0 g/dL) 4.1 Amylase (25 - 115 U/L) 56 Cancelled Lipase (73 - 393 U/L) 128 Cancelled Coagulation INR (0.8 - 1.2) 0.9 Hematology WBC (4.5 - 11.5 K/uL) 6.5 10.4 RBC (4.50 - 5.90 M/uL) 4.79 5.12 Hgb (13.5 - 17.5 gm/dL) 12.4 13.1 Hct (41.0 - 53.0 %) 38.6 41.2 MCV (80 - 100 fL) 81 81 MCH (26 - 34 pg) 26 26 RDW (11.6 - 14.8 %) 17.5 17.9 Neut % (Auto) (50 - 75 %) 91.5 85.5 Lymph % (Auto) (25 - 40 %) 7.9 9.2 Frio % (Auto) (3 - 14 %) 0.6 4.9 Eos % (Auto) (0 - 4 %) 0 0.4 Baso % (Auto) (0 - 2 %) 0 0 Plt Count, EDTA (150 - 400 K/uL) 284 299 PUBS MCHC (31 - 37 g/dL) 32 32 Toxicology Urine Opiates Screen (NEGATIVE) NEGATIVE Urine Methadone Screen (NEGATIVE) NEGATIVE Ur Barbiturates Screen (NEGATIVE) NEGATIVE U Amphetamin/Meth Scrn (NEGATIVE) NEGATIVE MDMA (Ecstasy) Screen (NEGATIVE) NEGATIVE U Benzodiazepines Scrn (NEGATIVE) NEGATIVE Urine Cocaine Screen (NEGATIVE) NEGATIVE U Cannabinoids Screen (NEGATIVE) NEGATIVE Urines Urine Color YELLOW Urine Appearance HAZY Urine pH (5.0 - 8.0) 8.0 Ur Specific [place] (1.010 - 1.030) 1.015 Urine Protein (NEGATIVE) NEGATIVE Urine Ketones (NEGATIVE) NEGATIVE Urine Blood (NEGATIVE) NEGATIVE Urine Nitrite (NEGATIVE) NEGATIVE Urine Bilirubin (NEGATIVE) NEGATIVE Urine Urobilinogen (0.2 - 1.0 EU/dL) 0.2 Ur Leukocyte Esterase (NEGATIVE) NEGATIVE Urine RBC (0 - 1 rbc/hpf) RARE Urine WBC (0 - 1 wbc/hpf) NONE SEEN Ur Epithelial Cells (0 - 5 EPI/hpf) NONE SEEN Urine Bacteria (NONE SEEN) NONE SEEN Urine Glucose (NEGATIVE) NEGATIVE Urine Comment CULT NOT INDICATED Assessment and Plan Problem List 1. Exacerbation of Crohn's disease Plan -Stable -Abdominal pain improved -No vomiting -Patient with normal BM today -Switch to oral medications -Abdominal x-ray shows bowel loops prominence without clear signs of obstruction -Probable discharge in a.m. 2. Abdominal pain Plan -Improved -Continue outpatient medical regimen -Monitor Current status: Fair, improved Anticipated discharge date: Anticipated discharge in a.m. Anticipated discharge placement: Home Patient care time: Time spent in chart review, patient interview, physical exam, CPOE, and care documentation: 25 minutes Visit to patient today: 2 Complexity of care: Moderate E&M Codes Rounding: Inpt-Moderate/[id number]
--- NOTE | 2016-09-27 08:45 | DIAGNOSTIC IMAGING REPORT ---
PROCEDURE: XR ABDOMEN 2 VIEWS INDICATION: Follow-up partial bowel obstruction. History of Crohn disease. TECHNIQUE: AP supine and upright views. COMPARISON: Compared to acute abdomen series on 09/26/2016. FINDINGS: There is mild improvement with slight decrease in mildly prominent distal small bowel loops, with a few air-fluid levels. Moderate stool in the right colon. Bowel pattern is normal. There are surgical coils overlying the abdomen from prior hernia repair. Soft tissues and osseous structures are normal. IMPRESSION: 1. Mild improvement with slight decrease in mildly prominent distal small bowel loops. 2. Moderate stool in the colon. 3. Consider obstruction, ileus, or obstipation.
--- NOTE | 2016-09-27 09:36 | Consultation Report ---
Admission Admit Date 09/27/16 History Chief Complaint Abdominal pain History of Present Illness 46-year-old male history of Crohn's disease presenting the emergency room with severe right lower quadrant abdominal pain. Patient's direct care staffer is at [facility] in [place]. Patient felt the wait time in the emergency room at [place] was too long and he came to [facility] emergency room to be evaluated. Patient is ordinarily followed by Dr. Ghotra. The patient was diagnosed with Crohn disease about age 20. He has had multiple surgeries with resection portion of the right colon and terminal ileum in the past. It was at that time that the diagnosis of Crohn's was made. Patient's last surgery was approximately 8 years ago in [facility]. Patient states that he has intermittent episodes of abdominal pain that pretty much resolved over a period of couple days. According to the patient he recently started a trial protocol IV infusion of Selera for his Crohn's disease. Patient states that the pain was located in the right lower quadrant as before. Localized. Intense stabbing. His last bowel movement was yesterday. Usually has diarrhea stools 12-15 times per day. Patient passed flatus today approximately 1 hour ago. Patient is still sore in the right lower quadrant. Patient states that he knows he has resolving because he is getting hungry. PAST MEDICAL/SURGICAL HISTORY: Tonsillectomy adenoidectomy. Patient underwent appendectomy at age 20 while in [place], this was complicated by postop abscess which required hospitalization in the [place] and treatment over 30 days. Patient eventually underwent exploration to clean out the abscess and it was during this period of time that the terminal ileum and a portion of the right colon were resected and the diagnosis of Crohn's disease was made. Patient has subsequently undergone several surgeries on the terminal ileum for Crohn's disease. Status post incisional hernia repair with mesh. Chronic Crohn's disease. Patient History 1. Abdominal pain 2. Small bowel obstruction 3. Exacerbation of Crohn's disease Social History Patient is Patient does not smoke, does not drink alcohol, does not use recreational drugs, does not drink coffee, does not use dairy products. 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 No service. FAMILY HISTORY: Mother age 67 breast cancer. Father in his late 70s in good health. Patient has 1 brother and 1 sister they are alive and well. Medications and Allergies Medications Current Medications Sig/Cherelle Start time Last Medication Dose Route Stop Time Status Admin Metoprolol Tartrate 5 MG ONCE PRN 09/27 0015 09/27 IV 0152 Metoclopramide HCl 10 MG Q6HR 09/27 0000 09/27 IV 0544 Hydromorphone HCl 1 MG Q2H PRN 09/26 2315 09/27 IV 0314 Hydromorphone HCl 2 MG Q2H PRN 09/26 2315 09/27 IV 0836 Methylprednisolone 80 MG Q8HR 09/26 2200 09/27 Sodium Succinate IV 0544 Famotidine/Sodium 50 ML Q12HR 09/26 2100 09/27 Chloride IV 0835 Acetaminophen 650 MG Q6H PRN 09/26 2044 AC PO Docusate Sodium 250 MG BID PRN 09/26 2044 AC PO Lactated Ringer's 1,000 ML ASDIRECTED 09/26 2044 AC 09/27 IV 0836 Zolpidem Tartrate 5 MG QHS PRN 09/26 2044 09/26 PO 2237 Ketorolac 60 MG .GIVE IN ED X 1 09/26 2014 AC Tromethamine IM Meperidine HCl 12.5 MG Q1H PRN 09/26 2014 AC 09/26 IV 2130 Ondansetron HCl 4 MG Q6H PRN 09/26 2014 AC 09/26 IV 2136 Sodium Chloride 1,000 ML ASDIRECTED 09/27 1999 AC IV Allergies Coded Allergies: Infliximab (From Remicade) (09/26/16) Lactose Intolerance (GI) (09/26/16) Review of Systems Other No prior history of hepatitis, jaundice, rheumatic fever, heart murmurs requiring antibiotics, leading tendencies, or blood transfusions. Patient does admit to occasional bright red blood per rectum associated with his multiple diarrheal stools secondary to his Crohn's disease. Remaining 12 point review systems is negative. Physical Exam Vital Signs / I&Os Vital Signs Date Time Temp Pulse Resp B/P Pulse O2 O2 Flow FiO2 Ox Delivery Rate 09/27 0848 Room Air 0.0 09/27 0742 97.9 70 18 117/79 92 09/27 0314 98.1 80 18 140/92 92 Room Air 09/27 0150 137/80 09/26 2238 98.1 98 20 154/97 97 Room Air 09/26 2053 98.4 81 20 148/92 95 Room Air 09/27 2043 Room Air I&O 09/26 0800 09/26 1600 09/27 0000 Intake Total 0 Output Total Balance 0 General Appearance Alert, Oriented X3, Cooperative, No acute distress HEENT Normal exam, Atraumatic, PERRLA, EOMI, Moist mucous membranes Lungs Clear to auscultation Neck Normal exam, Supple, No JVD, No masses, No thyromegaly, No lymphadenopathy Cardiovascular Regular rate and rhythm Abdomen Normal bowel sounds, nondistended. Nontympanitic. Hypoactive bowel sounds. Slight tenderness right lower quadrant. Fullness in this area to palpation. Midline incisional scar. Small incisional hernia just below and to the left of the umbilicus. Extremities No cyanosis, No clubbing, No edema Skin warm and dry. No peripheral cyanosis Neurological No lateralizing signs Psych/Mental Status Mood normal LAB Results Laboratory Tests 09/26 09/26 09/27 1816 1817 0520 Chemistry Plasma Sodium (136 - 145 mmol/L) 143 140 Plasma Potassium (3.5 - 5.1 mmol/L) 4.1 4.2 Plasma Chloride (98 - 107 mmol/L) 103 102 CO2 (Enzymatic) (21 - 32 mmol/L) 33 28 BUN (7 - 18 mg/dL) 10 10 Creatinine (0.6 - 1.3 mg/dL) 0.8 0.8 Est GFR ( Amer) (mL/min) >60 >60 Est GFR (Non-Af Amer) (mL/min) >60 >60 Glucose (70 - 110 mg/dL) 101 133 Plasma Calcium (8.5 - 10.1 mg/dL) 9.5 9.0 Plasma Magnesium (1.8 - 2.4 mg/dL) 2.1 2.0 Total Bilirubin (0.0 - 1.0 mg/dL) 0.5 AST (15 - 37 U/L) 36 ALT (12 - 78 U/L) 65 Alkaline Phosphatase (46 - 116 U/L) 82 Creatine Kinase (24 - 260 U/L) 88 Troponin (0.00 - 1.5 ng/mL) <0.05 Total Protein (6.4 - 8.2 g/dL) 8.2 Albumin (3.3 - 5.0 g/dL) 4.1 Amylase (25 - 115 U/L) Cancelled 56 Lipase (73 - 393 U/L) Cancelled 128 Coagulation INR (0.8 - 1.2) 0.9 Hematology WBC (4.5 - 11.5 K/uL) 10.4 6.5 RBC (4.50 - 5.90 M/uL) 5.12 4.79 Hgb (13.5 - 17.5 gm/dL) 13.1 12.4 Hct (41.0 - 53.0 %) 41.2 38.6 MCV (80 - 100 fL) 81 81 MCH (26 - 34 pg) 26 26 RDW (11.6 - 14.8 %) 17.9 17.5 Neut % (Auto) (50 - 75 %) 85.5 91.5 Lymph % (Auto) (25 - 40 %) 9.2 7.9 [place] % (Auto) (3 - 14 %) 4.9 0.6 Eos % (Auto) (0 - 4 %) 0.4 0 Baso % (Auto) (0 - 2 %) 0 0 Plt Count, EDTA (150 - 400 K/uL) 299 284 PUBS MCHC (31 - 37 g/dL) 32 32 Toxicology Urine Opiates Screen (NEGATIVE) NEGATIVE Urine Methadone Screen (NEGATIVE) NEGATIVE Ur Barbiturates Screen (NEGATIVE) NEGATIVE U Amphetamin/Meth Scrn (NEGATIVE) NEGATIVE MDMA (Ecstasy) Screen (NEGATIVE) NEGATIVE U Benzodiazepines Scrn (NEGATIVE) NEGATIVE Urine Cocaine Screen (NEGATIVE) NEGATIVE U Cannabinoids Screen (NEGATIVE) NEGATIVE Urines Urine Color YELLOW Urine Appearance HAZY Urine pH (5.0 - 8.0) 8.0 Ur Specific [place] (1.010 - 1.030) 1.015 Urine Protein (NEGATIVE) NEGATIVE Urine Ketones (NEGATIVE) NEGATIVE Urine Blood (NEGATIVE) NEGATIVE Urine Nitrite (NEGATIVE) NEGATIVE Urine Bilirubin (NEGATIVE) NEGATIVE Urine Urobilinogen (0.2 - 1.0 EU/dL) 0.2 Ur Leukocyte Esterase (NEGATIVE) NEGATIVE Urine RBC (0 - 1 rbc/hpf) RARE Urine WBC (0 - 1 wbc/hpf) NONE SEEN Ur Epithelial Cells (0 - 5 EPI/hpf) NONE SEEN Urine Bacteria (NONE SEEN) NONE SEEN Urine Glucose (NEGATIVE) NEGATIVE Urine Comment CULT NOT INDICATED Imaging Upright abdominal x-ray mildly distended loops mid small bowel. Nonspecific air -fluid level. Assessment and Plan Problem List 1. Small bowel obstruction Plan Chronic partial small bowel obstruction secondary to Crohn's resolving. Recommend clear liquid diet in a.m. no carbonated drinks. 2. Exacerbation of Crohn's disease Plan Continue medical management treatment of his chronic Crohn's disease. 3. Abdominal pain Plan Abdominal pain resolving. Continue present conservative medical management. Try to avoid opiates as much as possible. Recommend Demerol versus morphine/ Dilaudid
[2016-09-27] MEDS ORDERED: AZATHIOPRINE50 MG PO (14:15)
[2016-09-27] MEDS ORDERED: VITAMIN B-121000 MCG PO (14:17)
[2016-09-27] MEDS ORDERED: PERCOCET1 TA4 PO (14:18)
[2016-09-27] MEDS ORDERED: CHOLESTYRAMINE4 GM PO (14:19)
[2016-09-27] MEDS ORDERED: PULMICORT0.25 MG/2 PO (14:22)
[2016-09-27] MEDS ORDERED: FOLIC ACID1 MG PO (14:22)
[2016-09-28 01:46] VITALS: BP 137/88
[2016-09-28 05:48] VITALS: BP 120/86
--- NOTE | 2016-09-28 06:51 | Discharge Summary ---
Discharge Summary Report Admit Date 09/26/16 Discharge Date 09/28/16 Admission Diagnosis 1. Crohn's disease 2. Abdominal pain Discharge Diagnosis 1. Crohn's disease 2. Abdominal pain Brief History The patient is a 46-year-old white male with a significant past make a history of Crohn's disease that has been refractory to therapy, recent infusion x2 of the Stelara. who presented to [facility] emergency room on the day of admission secondary to complaints of shortness of breath. Patient states he is otherwise healthy up until today. [facility] ER evaluation was consistent with exacerbation of Crohn's disease with abdominal pain and rule out for SBO.. Secondary to the above, the patient was admitted for further evaluation and treatment by Cornelius Ghotra M.D. For other history present illness, past medical history, family history, social history, review of systems, and admission physical examination please see the patient's history and physical examination and ER visit note in the patient's medical record. Hospital Course The following problems and their management were noted during the patient's hospitalization: 1. Crohn's disease The patient has a long standing history of crohns disease. He was admitted with history of abdominal pain with suspected crohns flare. Symptoms resolved rapidly. No evidence of flare or SBO. Patient's symptoms resolve by DC. Outpatient follow up with PCP/GI this week. 2. Abdominal pain Resolved during patients hospitalization. Taking well orally at discharge. No evidence of SBO. Outpatient follow up with PCP Discharge Instructions/Meds For other recommendations regarding discharge diet, activity, followup, and discharge medications please see the patient's discharge instructions. Discharge condition: Fair, improved Greater than 30 min. was spent in the patient's discharge preparation including discharge interview and physical examination, progress note, discharge instructions, and discharge summary The patient was interviewed and examined on the day of discharge. E&M Codes Discharge: Observation - All/[id number]
--- NOTE | 2016-09-28 06:51 | Discharge Summary ---
Discharge Summary Report Admit Date 09/26/16 Discharge Date 09/28/16 Admission Diagnosis 1. Crohn's disease 2. Abdominal pain Discharge Diagnosis 1. Crohn's disease 2. Abdominal pain Brief History The patient is a 46-year-old white male with a significant past make a history of Crohn's disease that has been refractory to therapy, recent infusion x2 of the Stelara. who presented to [facility] emergency room on the day of admission secondary to complaints of shortness of breath. Patient states he is otherwise healthy up until today. [facility] ER evaluation was consistent with exacerbation of Crohn's disease with abdominal pain and rule out for SBO.. Secondary to the above, the patient was admitted for further evaluation and treatment by Cornelius Ghotra M.D. For other history present illness, past medical history, family history, social history, review of systems, and admission physical examination please see the patient's history and physical examination and ER visit note in the patient's medical record. Hospital Course The following problems and their management were noted during the patient's hospitalization: 1. Crohn's disease The patient has a long standing history of crohns disease. He was admitted with history of abdominal pain with suspected crohns flare. Symptoms resolved rapidly. No evidence of flare or SBO. Patient's symptoms resolve by DC. Outpatient follow up with PCP/GI this week. 2. Abdominal pain Resolved during patients hospitalization. Taking well orally at discharge. No evidence of SBO. Outpatient follow up with PCP Discharge Instructions/Meds For other recommendations regarding discharge diet, activity, followup, and discharge medications please see the patient's discharge instructions. Discharge condition: Fair, improved Greater than 30 min. was spent in the patient's discharge preparation including discharge interview and physical examination, progress note, discharge instructions, and discharge summary The patient was interviewed and examined on the day of discharge. E&M Codes Discharge: Observation - All/[id number]
[2016-09-28] MEDS ORDERED: ZOFRAN ODT4 MG PO (06:53)
--- NOTE | 2016-09-28 06:55 | Provider's Discharge Care Plan ---
Problem, Goal, Plan Problem List 1. Exacerbation of Crohn's disease Goals: Improve disease control, Improve function, Improved health/wellness, Prevent disease progress Instructions: Follow up as directed, Take meds as directed 2. Abdominal pain Goals: Improve disease control, Prevent disease progress Instructions: Follow up as directed, Take meds as directed
== END 2016-09-28 21:00 | disposition home or self-care (01) ==
LOC: ED SRH 18:00 → TRANS SRH 19:31 → ACUTE2 SRH 20:27
PROVIDERS: ADMIT Emergency Medicine
DX: K50.912 Crohn's disease, unspecified, with intestinal obstruction (principal); Z90.49 Acquired absence of other specified parts of digestive tract
CPT/HCPCS: 29229; 29230; 29243; 29247; 29263; 29264; 90004; 90047; 90074; 90100; 90616; 92235; 92530; 92610; 92720; 92760; 92761; 92762; 92763; 92764; 92765; 92766; 92767; 94060; 95059